=== PATIENT | female | born 1980 | race Caucasian/White ===

== ENCOUNTER 2017-03-25 10:53 | Emergency (ER) | payer BC ==
[~2017-03-25] VITALS: Ht 175.3 cm; Wt 99.8 kg
[2017-03-25 11:02] VITALS: BP_SYST 164
[2017-03-25 12:02] LABS: BASOPHILS % (AUTO) 0.4 % (0.0-2.0); EOSINOPHILS # (AUTO) 0.2 K/uL (0.0-0.4); EOSINOPHILS % (AUTO) 2.5 % (0.0-4.0); HEMATOCRIT 45.7 % (36-48); LYMPHOCYTES # (AUTO) 2.5 K/uL (1.0-5.5); LYMPHOCYTES % (AUTO) 32.9 % (20.5-51.5); MEAN CORPUSCULAR HEMOGLOBIN 29 pg (27-31); MEAN CORPUSCULAR HGB CONC 33 % (32-36); MEAN CORPUSCULAR VOLUME 89 fL (79.0-98.0); MONOCYTES # (AUTO) 0.5 K/uL (0.0-1.0); MONOCYTES % (AUTO) 7.2 % (1.7-9.3); NEUTROPHILS # (AUTO) 4.4 K/uL (1.8-7.7); PLATELET COUNT (AUTO) 304 K/uL (130-430); RED BLOOD CELL COUNT(AUTO) 5.16 MIL/uL (4.2-6.2); RED CELL DISTRIBUTION WIDTH 11.3 % (9.0-15.0); WHITE BLOOD COUNT (AUTO) 7.6 K/uL (4.8-10.8)
[2017-03-25 12:08] LABS: CALCIUM 8.5 mg/dL (8.4-11.0); CREATININE 0.98 mg/dL (0.55-1.30); POTASSIUM 3.1 mmol/L (3.5-5.1); PROTHROMBIN TIME 10.1 SECS (9.5-12.5)
[2017-03-25 12:24] LABS: ALBUMIN 4.4 g/dL (3.4-4.8); FREE T4 (FREE THYROXINE) 0.8 ng/dL (0.6-1.6); THYROID STIMULATING HORMONE 1.03 uIu/mL (0.34-4.82); TOTAL BILIRUBIN 0.7 mg/dL (0.0-1.0)
[2017-03-25 13:50] VITALS: BP_SYST 138
== END 2017-03-25 13:49 | disposition home or self-care (01) ==
LOC: SED 10:53
DX: I16.0 Hypertensive urgency (principal)
CPT/HCPCS: 36415; 71010; 80053; 82550-TC; 83880; 84439; 84443-TC; 84484; 84703; 85025; 85379; 85610-TC; 85730-TC; 93005; 99285